=== PATIENT | male | born 2000 | race Caucasian/White ===

== ENCOUNTER 2018-06-05 00:04 | Emergency (ER) | payer SELFPAY ==
[~2018-06-05] VITALS: Ht 162.6 cm; Wt 44.0 kg
[2018-06-05] MEDS ORDERED: ACETAMINOPHEN 500MG TABLET PO ONE (06:30)
[2018-06-05 08:07] VITALS: BP 99/65
== END 2018-06-05 08:13 | disposition home or self-care (01) ==
LOC: ER 00:04
DX: S00.83XA Contusion of other part of head, initial encounter (principal); Y04.0XXA Assault by unarmed brawl or fight, initial encounter; Y93.89 Activity, other specified; Y92.89 Other specified places as the place of occurrence of the external cause
CPT/HCPCS: 70486; 99284; Z7610

== ENCOUNTER 2018-07-07 13:43 | Emergency (ER) | payer SELFPAY ==
[~2018-07-07] VITALS: Ht 162.6 cm; Wt 41.0 kg
[2018-07-07] MEDS ORDERED: IBUPROFEN 600MG TABLET PO STA (15:01)
[2018-07-07 16:38] VITALS: BP 122/71
== END 2018-07-07 16:39 | disposition home or self-care (01) ==
LOC: ER 13:43
DX: S39.012A Strain of muscle, fascia and tendon of lower back, initial encounter (principal); M25.561 Pain in right knee; F12.10 Cannabis abuse, uncomplicated; V43.62XA Car passenger injured in collision with other type car in traffic accident, initial encounter; Y93.89 Activity, other specified; Y92.488 Other paved roadways as the place of occurrence of the external cause
CPT/HCPCS: 71101; 73562; 99283

== ENCOUNTER 2019-05-05 18:12 | Emergency (ER) | payer SELFPAY ==
[~2019-05-05] VITALS: Ht 160 cm; Wt 55.0 kg
[2019-05-05 18:17] VITALS: BP 102/77
[2019-05-06] MEDS ORDERED: LIDOCAINE 1%/EPI 1:100,000 10 ML VIAL IJ ONE
[2019-05-06] MEDS ORDERED: BACITRACIN ZINC OINT UDPKT TOP ONE
[2019-05-06] MEDS ORDERED: LIDOCAINE HCL/EPINEPHRINE 1%-EPI 1:100,000 20 ML VIAL INFIL NR (00:15)
[2019-05-06] MEDS ORDERED: ACETAMINOPHEN 500MG TABLET PO ONE (00:30)
[2019-05-06] MEDS ORDERED: IBUPROFEN 800MG TABLET PO ONE (00:30)
== END 2019-05-06 02:22 | disposition home or self-care (01) ==
LOC: ER 18:12
DX: L02.411 Cutaneous abscess of right axilla (principal)
CPT/HCPCS: 99284; J3490

== ENCOUNTER 2019-05-09 19:17 | Emergency (ER) | payer SELFPAY ==
[~2019-05-09] VITALS: Ht 160 cm; Wt 50.0 kg
[2019-05-09 23:40] VITALS: BP 115/75
== END 2019-05-09 23:41 | disposition home or self-care (01) ==
LOC: ER 19:17
DX: Z48.00 Encounter for change or removal of nonsurgical wound dressing (principal); L02.411 Cutaneous abscess of right axilla
CPT/HCPCS: 99281

== ENCOUNTER 2019-06-08 10:31 | Emergency (ER) | payer SELFPAY ==
[~2019-06-08] VITALS: Ht 157.5 cm; Wt 50.3 kg
[2019-06-08] MEDS ORDERED: IBUPROFEN 600MG TABLET PO ONE (12:15)
[2019-06-08 13:41] VITALS: BP 116/68
== END 2019-06-08 13:42 | disposition home or self-care (01) ==
LOC: ER 10:31
DX: Z48.00 Encounter for change or removal of nonsurgical wound dressing (principal)
CPT/HCPCS: 99282

== ENCOUNTER 2020-02-16 15:57 | Emergency (ER) | payer MEDICAID ==
[~2020-02-16] VITALS: Ht 162.6 cm; Wt 52.0 kg
[2020-02-16] MEDS ORDERED: LIDOCAINE 1%/EPI 1:100,000 10 ML VIAL IJ ONE (16:45)
[2020-02-16] MEDS ORDERED: BACITRACIN ZINC OINT UDPKT TOP ONE (16:45)
[2020-02-16] MEDS ORDERED: ACETAMINOPHEN 325MG TABLET PO ONE (16:45)
[2020-02-16] MEDS ORDERED: CEFTRIAXONE SODIUM 250 MG/VIAL IM ONE (17:15)
[2020-02-16] MEDS ORDERED: AZITHROMYCIN 500 MG TABLET PO ONE (17:15)
[2020-02-16 17:27] VITALS: BP 116/72
[2020-02-16] MEDS ORDERED: LIDOCAINE HCL/EPINEPHRINE 1%-EPI 1:100,000 20 ML VIAL INFIL SCH (17:28)
== END 2020-02-16 17:28 | disposition home or self-care (01) ==
LOC: ER 15:57
DX: L02.412 Cutaneous abscess of left axilla (principal)
CPT/HCPCS: 10060; 87491; 87591; 96372; 99283; J0696; J3490

== ENCOUNTER 2022-02-13 21:38 | Emergency (ER) | payer MEDICAID ==
[~2022-02-13] VITALS: Ht 160 cm; Wt 47.9 kg
[2022-02-13 21:39] VITALS: BP 127/75
[2022-02-13] MEDS ORDERED: IBUPROFEN 600MG TABLET PO ONE (23:45)
== END 2022-02-14 01:35 | disposition home or self-care (01) ==
LOC: ER 21:38
DX: N50.812 Left testicular pain (principal); N50.811 Right testicular pain; Z98.890 Other specified postprocedural states
CPT/HCPCS: 76870; 93976; 99284